=== PATIENT | female | born 1990 | race Caucasian/White ===

== ENCOUNTER 2016-06-04 02:34 | Inpatient (IN) | payer OTHER ==
[2016-06-04] MEDS ORDERED: NACL ONE (03:22)
[2016-06-04 03:32] LABS: Bacteria,Urine 2+ /HPF (Negative); Bilirubin,Urine NEG (Negative); Blood,Urine LG (Negative); Ketones,Urine TR mg/dL (Negative); Leukocyte Esterase,Urine NEG (Negative); Mucus,Urine 3+ /HPF; Nitrite,Urine NEG (Negative); Urobilinogen,Urine < 2.0 mg/dL (<2.0)
[2016-06-04 03:43] LABS: RBC,Urine > 182.0 /HPF (0.0-6.0)
[2016-06-04 03:54] LABS: Basophils % (Auto) 0.2 % (0.0-1.8); Eosinophils % (Auto) 0.3 % (0.0-4.3); Hematocrit 44.3 % (30.3-42.9); Hemoglobin 14.1 gm/dl (10.1-14.3); Mean Corpuscular HGB Conc 32 % (30-34); Mean Corpuscular Hemoglobin 30 pg (28-32); Mean Corpuscular Volume 93 fl (79-97); Platelet Count 236 K/mm3 (140-440); Red Blood Count 4.76 M/mm3 (3.65-5.03); Red Cell Distribution Width 13.5 % (13.2-15.2); White Blood Count 19.7 K/mm3 (4.5-11.0)
[2016-06-04] MEDS ORDERED: NACL 0.9% 1000 ML 0 ML ONE (04:09)
[2016-06-04 04:15] LABS: Alanine Aminotransferase 20 units/L (7-56); Albumin 4.4 g/dL (3.9-5); Albumin/Globulin Ratio 1.2 %; Alkaline Phosphatase 70 units/L (35-129); Bilirubin,Total 0.3 mg/dL (0.1-1.2); Blood Urea Nitrogen 12 mg/dL (7-17); Calcium 9.3 mg/dL (8.4-10.2); Carbon Dioxide 25 mmol/L (22-30); Chloride 94.3 mmol/L (98-107); Glucose 124 mg/dL (65-100); Lipase 21 units/L (13-60); Potassium 4.9 mmol/L (3.6-5.0); Sodium 134 mmol/L (137-145); Total Protein 8.2 g/dL (6.3-8.2)
[2016-06-04 04:18] LABS: Anion Gap 20 mmol/L
--- NOTE | 2016-06-04 05:56 | Cat Scan Report ---
FINAL REPORT PROCEDURE: CT ABDOMEN PELVIS WO CON TECHNIQUE: Computerized axial tomography of the abdomen and pelvis was performed without intravenous contrast. This study is performed without intravascular contrast material and its sensitivity for abdominal and pelvic pathology, including neoplasms, inflammation, abscess, free fluid, thrombosis, arterial dissection and infarction, is reduced compared with a contrast enhanced study. HISTORY: Pelvic, Flank, Back pn, Blood in urine rlq pain COMPARISON: No prior studies are available for comparison. FINDINGS: Visualized lower thorax: No significant abnormality. Liver: Normal size and attenuation. Spleen: Normal size and attenuation. Gallbladder and biliary system: Normal. Pancreas: Normal. Adrenals: Normal. Kidneys: There is a 5 millimeter stone at the right ureteral vesicle junction causing moderate right hydronephrosis and hydroureter. There are tiny stones in the right kidney. The left kidney is unremarkable.. GI tract: There is no bowel obstruction, colitis or enteritis. The appendix is normal.. Lymph nodes and mesentery: Normal. Vasculature: Normal. Bladder: Normal. Reproductive organs: Uterus and ovaries are unremarkable . Peritoneum: There is no ascites, free air, abscess or adenopathy.. Musculoskeletal structures: No significant abnormality. Other: None. IMPRESSION: There is a 5 millimeter stone at the right ureteral vesicle junction causing moderate right hydronephrosis and hydroureter. There are tiny stones in the right kidney. The left kidney is unremarkable.. There is no bowel obstruction, colitis or enteritis. The appendix is normal.. Uterus and ovaries are unremarkable . There is no ascites, free air, abscess or adenopathy.. .
[2016-06-04] MEDS ORDERED: TORADOL IV ONE (09:05)
[2016-06-04] MEDS ORDERED: ROCEPHIN/NS 1 GM/50 ML 50 ML IV ONE (09:05)
[2016-06-04] MEDS ORDERED: ZOFRAN IV ONE (09:05)
[2016-06-04] MEDS ORDERED: SUBLIMAZE IV ONE ×2 (09:05→11:51)
--- NOTE | 2016-06-04 10:29 | Emergency Department Report ---
HPI - General Chief Complaint: Abdominal Pain - HPI HPI: Room 6 The patient is a 25-year-old female presenting with a chief complaint of right flank pain. The patient states 3 days ago she developed pain in the right flank. The patient states she was using pain medication suppository called "Euparin." The patient states the pain increased severely last night prompted her to come to the emergency department. Patient states she noticed hematuria in the emergency department as well as dysuria. The patient gives her pain a score of 10/10. The patient had an episode of vomiting once in the emergency department. There is no history of fever at home. Patient states her pain was a 10/10 upon arrival to the ED and after pain medication in the ED if has decrease to 2/10 currently. Location: Right flank Duration: [see above] Quality: Pain Severity: [see above] Modifying factors: [see above] Context: [see above] Mode of transportation: [not driving] ED Past Medical Hx - Past Medical History Previous Medical History?: Yes Hx Kidney Stones: Yes - Surgical History Past Surgical History?: No - Family History Family history: no significant - Social History Smoking Status: Never Smoker Substance Use Type: None ED Review of Systems ROS: Stated complaint: LOWER BACK PAIN Other details as noted in HPI Comment: All other systems reviewed and negative Constitutional: denies: chills, fever Eyes: denies: eye pain, eye discharge, vision change ENT: denies: ear pain, throat pain Respiratory: denies: cough, shortness of breath, wheezing Cardiovascular: denies: chest pain, palpitations Endocrine: no symptoms reported Gastrointestinal: abdominal pain, nausea, vomiting Genitourinary: dysuria, hematuria Musculoskeletal: back pain Skin: denies: rash, lesions Neurological: denies: headache, weakness, paresthesias Psychiatric: denies: anxiety, depression Hematological/Lymphatic: denies: easy bleeding, easy bruising Physical Exam - Physical Exam Vital Signs: Vital Signs 06/04/16 06/04/16 06/04/16 03:02 09:23 09:27 Temperature 97.8 F Pulse Rate 82 85 Respiratory 20 20 16 Rate Blood Pressure 129/87 Blood Pressure 131/86 [Left] O2 Sat by Pulse 96 97 97 Oximetry Physical Exam: GENERAL: The patient is well-developed well-nourished female lying on stretcher not appearing to be in acute distress. [] HEENT: Normocephalic. Atraumatic. Extraocular motions are intact. Patient has moist mucous membranes. NECK: Supple. Trachea midline CHEST/LUNGS: Clear to auscultation. There is no respiratory distress noted. HEART/CARDIOVASCULAR: Regular. There is no tachycardia. There is no gallop rub or murmur. ABDOMEN: Abdomen is soft, with mild discomfort to palpation in the suprapubic and left lower quadrant. Patient has normal bowel sounds. There is no abdominal distention. SKIN: There is no rash. There is no edema. There is no diaphoresis. NEURO: The patient is awake, alert, and oriented. The patient is cooperative. The patient has normal speech MUSCULOSKELETAL: There is no CVA tenderness bilaterally. There is no evidence of acute injury. ED Course Vital Signs 06/04/16 06/04/16 06/04/16 03:02 09:23 09:27 Temperature 97.8 F Pulse Rate 82 85 Respiratory 20 20 16 Rate Blood Pressure 129/87 Blood Pressure 131/86 [Left] O2 Sat by Pulse 96 97 97 Oximetry - Consultations Consultation #1: 06/04/16 10:21 Urology paged 11:[address] Quesada-recommends patient be admitted to the hospital for observation. States the patient should be NPO now in preparation for potential ureteral stent placement 06/04/16 11:52 ED Medical Decision Making - Lab Data Result diagrams: 06/04/16 03:37 06/04/16 03:37 Laboratory Tests 06/04/16 06/04/16 06/04/16 02:50 03:37 03:37 WBC 19.7 H RBC 4.76 Hgb 14.1 Hct 44.3 H MCV 93 MCH 30 MCHC 32 RDW 13.5 Plt Count 236 Lymph % (Auto) 10.5 L Aurora % (Auto) 5.7 Eos % (Auto) 0.3 Baso % (Auto) 0.2 Lymph # 2.1 Aurora # 1.1 H Eos # 0.1 Baso # 0.0 Seg Neutrophils % 83.3 H Seg Neutrophils # 16.4 H Sodium 134 L Potassium 4.9 Chloride 94.3 L Carbon Dioxide 25 Anion Gap 20 BUN 12 Creatinine 0.5 L Estimated GFR > 60 BUN/Creatinine Ratio 24.00 Glucose 124 H Calcium 9.3 Total Bilirubin 0.3 AST 28 ALT 20 Alkaline Phosphatase 70 Total Protein 8.2 Albumin 4.4 Albumin/Globulin Ratio 1.2 Lipase 21 HCG, Qual Urine Color Yeimy Urine Turbidity Cloudy Urine pH 6.0 Ur Specific Revere 1.030 Urine Protein 100 mg/dl Urine Glucose (UA) Neg Urine Ketones Tr Urine Blood Lg Urine Nitrite Neg Urine Bilirubin Neg Urine Urobilinogen < 2.0 Ur Leukocyte Esterase Neg Urine WBC (Auto) 55.0 H Urine RBC (Auto) > 182.0 Urine Bacteria (Auto) 2+ Urine Mucus 3+ 06/04/16 03:37 WBC RBC Hgb Hct MCV MCH MCHC RDW Plt Count Lymph % (Auto) Aurora % (Auto) Eos % (Auto) Baso % (Auto) Lymph # Aurora # Eos # Baso # Seg Neutrophils % Seg Neutrophils # Sodium Potassium Chloride Carbon Dioxide Anion Gap BUN Creatinine Estimated GFR BUN/Creatinine Ratio Glucose Calcium Total Bilirubin AST ALT Alkaline Phosphatase Total Protein Albumin Albumin/Globulin Ratio Lipase HCG, Qual Negative Urine Color Urine Turbidity Urine pH Ur Specific Revere Urine Protein Urine Glucose (UA) Urine Ketones Urine Blood Urine Nitrite Urine Bilirubin Urine Urobilinogen Ur Leukocyte Esterase Urine WBC (Auto) Urine RBC (Auto) Urine Bacteria (Auto) Urine Mucus - Radiology Data Radiology results: report reviewed (CT abdomen and pelvis), image reviewed (CT abdomen and pelvis) CT abdomen and pelvis (read by radiologist)-there is a 5 mm stone at the right VJ causing moderate right hydronephrosis and hydroureter. There are tiny stones in the right kidney. The left kidney is unremarkable. The appendix is normal - Differential Diagnosis renal colic, pyelonephritis, UTI Critical care attestation.: If time is entered above; I have spent that time in minutes in the direct care of this critically ill patient, excluding procedure time. ED Disposition Clinical Impression: Renal colic on right side, UTI (urinary tract infection) Disposition: OP ADMITTED IP TO THIS HOSP Is pt being admited?: Yes Does the pt Need Aspirin: No Condition: Fair Instructions: Abdominal Pain (ED) Referrals: PRIMARY CARE, [Primary Care Provider] - 3-5 Days Time of Disposition: 11:53 (hospitalist paged)
[2016-06-04] MEDS ORDERED: NACL 0.9% 1000 ML 1,000 ML IV ONE (11:51)
--- NOTE | 2016-06-04 12:53 | Admit Criteria Form ---
Admission Criteria Documentation: ABDOMINAL PAIN Clinical Indications for Admission to Inpatient Care (Place 'X' for any and all applicable criteria): Admission is indicated for ANY ONE of the following(1)(2)(3)(4)(5): [X ]I. Inpatient admission required rather than observation care (Also use Abdominal Pain: Observation Care, as appropriate) because of ANY ONE of the following: [ ]a) Severe pain requiring acute inpatient management [ ]b) Identification of etiology/finding that requires inpatient care (eg, aortic dissection, free air) [ ]c) Absent bowel sounds with complete ileus(6) [ ]d) Suspected toxic megacolon [ ]e) Severe electrolyte abnormalities requiring inpatient care [ ]f) High fever or infection requiring inpatient admission as indicated by ANY ONE of following(7)(8): [ ] i) Appropriate outpatient or observational care antimicrobial treatment unavailable, not effective, or not feasible [ ] ii) Documented bacteremia [ ] iii) Temperature > 104.9 degrees F (oral) [ ] iv) T >103.1 F (oral) or < 96.8 F(rectal) that does not respond to all emergency treatment measures [ ]g) Signs of intestinal obstruction [B] [ ]h) Hemodynamic instability [ ]i) IV fluid to replace significant ongoing losses (greater than 3 L/m2 per day) (12)(13) [ ]j) Percutaneous or open drainage (eg, abscess, biliary tract ) procedures [ ]k) Parenteral nutrition regimen that must be implemented on inpatient basis [X ]l) Other condition,treatment or monitoring requiring inpatient admission. [ ]II. Peritoneal signs present [ ]III. Surgery needed that cannot be performed on an ambulatory basis. [ ]IV. Evaluation requires patient to not eat or drink for extended period ( eg, more than 24 hours). [ ]V. Contraindications and/or Inappropriate clinical situations for Observational Care in patients with abdominal pain, when ANY ONE of the following is required: [ ]a) Thorough evaluation is required to prevent catastrophic events due to delays in diagnosing (e.g.Mesenteric ischemia) 1,3 [ ]b) Patient with severe pathology or with chronic symptoms unlikely to improve in the ED stay (3) [ ]. General contraindications and/or Inappropriate clinical situations for Observational Care in patients with abdominal pain, when ANY ONE of the following is required: [ ]a) Prediction of prolongation of LOS based on ANY ONE of the following may be considered as a contraindication for observational care 2, 3, 4, 5, 6, 7, 8, 9, 10, 11 [ ]i) Age > 65 yrs. [ ]ii) Patient arriving by ambulance [ ]iii) Patient with high acuity [ ]iv) Patient requiring vital sign monitoring [ ]v) Patient on IV medication [ ]b) Systolic blood pressures 180mmHg 3,12 [ ]c) Patient with altered mental status including delirium and other alteration of consciousness, (3) [ ]d) Patient whose discharge disposition will be to a care home home or rehabilitation home should not be managed in Emergency Department Observation Unit. CMS rule requires 3 days hospital stay before such placement.3,13 [ ]e) Patient with failure to thrive due to broad array of etiologies 3,16,17 [ ]f) Inability to ambulate 3,14 Extended stay beyond goal length of stay may be needed for(2)(3): [ ]a) Persistent abdominal pain with suspected intra-abdominal process [ ]b) Diagnosed condition requiring continued stay (e.g., pancreatitis, complicated diverticulitis) [ ]c) Surgery (e.g., colectomy) The original [facility] [employer] content created by [employer] has been revised. The portions of the content which have been revised are identified through the use of italic text or in bold, and [facility] has neither reviewed nor approved the modified material.All other unmodified content is copyright [facility] [employer]. Please see references footnoted in the original [facility] [employer] edition 2016 Admission Criteria Met: Yes
[2016-06-04] MEDS ORDERED: LEVAQUIN 500MG/100ML 100 ML IV ONE (13:27)
[2016-06-04] MEDS ORDERED: TORADOL IV PRN (13:30)
[2016-06-04] MEDS ORDERED: TYLENOL PO PRN (13:30)
[2016-06-04] MEDS ORDERED: REGLAN IV PRN (13:30)
[2016-06-04] MEDS ORDERED: ZOFRAN IV PRN (13:30)
--- NOTE | 2016-06-04 14:05 | History and Physical Report ---
History of Present Illness Date of examination: 06/04/16 Date of admission: 06/04/16 12:35 Chief complaint: RT flank pain for 2 days History of present illness: Miss Dave Frances is a 25-year-old female who presented to the emergency room with right flank pain associated with nausea and vomiting. Pain started in the right flank and radiates to the groin. She's had a stone in the past which she has passed; at the time of evaluation she had no pain. She had received IV Toradol in the emergency room. She had a CT scan done which confirmed a 5 mm light. The urologist Dr. Quesada was consulted from the ER and patient was also started on IV antibiotics for presumed urinary tract infection. Past History Past Medical History: other (renal calculi ) Past Surgical History: No surgical history Social history: no significant social history Family history: diabetes, hypertension Medications and Allergies Allergies Allergy/AdvReac Type Severity Reaction Status Date / Time erythromycin base Allergy Hives Verified 06/04/16 12:39 Active Meds: Active Medications Acetaminophen (Tylenol) 650 mg PO Q4H PRN PRN Reason: Pain MILD(1-3)/Fever >100.5/BAR[place] Sodium Chloride (Nacl 0.9% 1000 Ml) 1,000 mls @ 125 mls/hr IV ONCE ONE Stop: 06/04/16 19:50 Last Admin: 06/04/16 12:45 Dose: 125 mls/hr Levofloxacin/Dextrose (Levaquin 500mg/100ml) 100 mls @ 100 mls/hr IV ONCE ONE Stop: 06/04/16 14:26 Last Admin: 06/04/16 13:43 Dose: 100 mls/hr Ceftriaxone Sodium (Rocephin/Ns 1 Gm/50 Ml) 50 mls @ 100 mls/hr IV Q24HR CARLOS PRN Reason: Protocol Sodium Chloride (Nacl 0.45% 1000 Ml) 1,000 mls @ 125 mls/hr IV DIRECT CARLOS Ketorolac Tromethamine (Toradol) 30 mg IV Q6H PRN PRN Reason: Pain, Moderate (4-6) Stop: 06/09/16 13:29 Metoclopramide HCl (Reglan) 10 mg IV Q6H PRN PRN Reason: Nausea And Vomiting Ondansetron HCl (Zofran) 4 mg IV Q8H PRN PRN Reason: N/V unrelieved by Reglan Review of Systems All systems: negative Constitutional: no weight loss, no weight gain, no fever, no chills, no anorexia , no fatigue Ears, nose, mouth and throat: no ear pain, no ear discharge, no tinnitis, no decreased hearing Breasts: normal Cardiovascular: no chest pain, no orthopnea, no palpitations, no rapid/ irregular heart beat Respiratory: no cough, no cough with sputum, no excessive sputum, no hemoptysis Gastrointestinal: other (as in the [facility] ) Genitourinary Female: no dysuria, no urinary frequency, no urgency Rectal: no pain, no incontinence, no bleeding Musculoskeletal: no neck stiffness, no neck pain, no shooting arm pain, no arm numbness/tingling Integumentary: no rash, no pruritis, no redness, no sores Neurological: no head injury, no transient paralysis, no paralysis, no weakness Psychiatric: no anxiety, no memory loss, no change in sleep habits Endocrine: no cold intolerance, no heat intolerance, no polyphagia, no excessive thirst Hematologic/Lymphatic: no easy bruising, no easy bleeding Allergic/Immunologic: no urticaria, no allergic rhinitis, no wheezing Exam - Constitutional Vitals: Temp Pulse Resp BP Pulse Ox 97.8 F 85 16 131/86 97 06/04/16 03:02 06/04/16 09:23 06/04/16 09:27 06/04/16 09:23 06/04/16 09:27 General appearance: Present: no acute distress, well-nourished - EENT Eyes: Present: PERRL, EOM intact. Absent: scleral icterus, conjunctival injection ENT: hearing intact, clear oral mucosa, no oropharyngeal erythema, no poor dentition - Neck Neck: Present: supple, normal ROM. Absent: enlarged thyroid, masses or JVD - Respiratory Respiratory effort: normal Respiratory: negative: diminished, rales, rhonchi, wheezing - Cardiovascular Rhythm: regular Heart Sounds: Present: S1 & S2. Absent: gallop - Extremities Extremities: no ischemia, pulses intact, pulses symmetrical, No edema, normal temperature Peripheral Pulses: within normal limits - Abdominal General gastrointestinal: Present: soft, non-tender, non-distended, normal bowel sounds Female genitourinary: Present: deferred - Rectal Rectal Exam: deferred - Integumentary Integumentary: Present: clear - Musculoskeletal Musculoskeletal: strength equal bilaterally - Psychiatric Psychiatric: appropriate mood/affect, intact judgment & insight, cooperative - Neurologic Neurologic: CNII-XII intact, moves all extremities Results - Labs CBC & Chem 7: 06/04/16 03:37 06/04/16 03:37 - Imaging and Cardiology CT scan - abdomen: report reviewed (CT scan of the abdomen and pelvis- 5mm stone at the RT ureteral vesicle junction causing moderate hydronephrosis and hydroureter; tiny tones in the RT kidneyl LT kidney unremarkable) Assessment and Plan 1. RT nephrolithiasis with hydroureteral and hydronephrosis with hematuria- admit as an inpatient as more than 2 benign; required for treatment. We'll follow-up with consult from Dr. Felder for further management. We'll keep patient nothing by mouth for now in the event that she needs to have a urological procedure. Start IV fluids. IV Toradol as needed for pain; IV morphine for pain 2. Possible UTI - IV rocephin; in view of WBC in urine and leukocytosis but the WBC in the urine could be related to the hematuria 3. DVT prophylaxis- SCD; hold chemical prophhylaxis- in view of possible urological intervention
--- NOTE | 2016-06-04 14:41 | Anesthesia Consultation ---
Anesthesia Consult and Med Hx Date of service: 06/04/16 - Airway Anesthetic Teeth Evaluation: Good ROM Head & Neck: Adequate Mental/Hyoid Distance: Adequate Mallampati Class: Class I Intubation Access Assessment: Good - Pulmonary Exam CTA: Yes - Cardiac Exam Cardiac Exam: RRR - Pre-Operative Health Status ASA Pre-Surgery Classification: ASA1 Proposed Anesthetic Plan: General - Additional Comments Anesthesia Medical History Comments: No previous anesthesia & negative family history. Occasional migraines, otherwise healthy.
--- NOTE | 2016-06-04 14:41 | Anesthesia Day of Surgery ---
Anesthesia Day of Surgery - Day of Surgery Patient Examined: Yes Patient H&P Reviewed: Yes Patient is NPO: Yes
[2016-06-04] MEDS ORDERED: DIPRIVAN 10 MG/ML IV ONE (15:52)
[2016-06-04] MEDS ORDERED: SUBLIMAZE ONE (15:52)
[2016-06-04] MEDS ORDERED: XYLOCAINE MPF 2% ONE (15:53)
[2016-06-04] MEDS ORDERED: DILAUDID IV PRN (16:44)
--- NOTE | 2016-06-04 16:44 | Post Operative Note ---
Pre-op diagnosis: r ureteral stone inc wbc Post-op diagnosis: same Findings: r distal stone Procedure: cysto stent rpg Anesthesia: GETA Surgeon: UBALDO CASON Estimated blood loss: none Pathology: none Condition: stable Disposition: PACU
[2016-06-04] MEDS ORDERED: ZOFRAN ONE ×2 (16:45→17:13)
[2016-06-04] MEDS ORDERED: TORADOL ONE ×2 (16:45→17:13)
--- NOTE | 2016-06-04 17:01 | Discharge Summary ---
Short Stay Discharge Plan Follow up with: PRIMARY CARE, [Primary Care Provider] - 3-5 Days
[2016-06-04] MEDS ORDERED: VERSED ONE (17:05)
[2016-06-04] MEDS ORDERED: OMNIPAQUE (300 MG) IV ONE (17:08)
--- NOTE | 2016-06-04 17:08 | Post Anesthesia Evaluation ---
- Post Anesthesia Evaluation Patient Participated: Yes Airway Patent: Yes Stable Respiratory Function: Yes Nausea/Vomiting: No Temp > 96.8F: Yes Pain Manageable: Yes Adequeate Hydration: Yes Anesthesia Complications: No Block Receding Appropriately: Not Applicable Patient on Ventilator: No
[2016-06-04] MEDS ORDERED: WATER FOR IRRIG STERILE IR ONE (17:09)
[2016-06-04] MEDS ORDERED: LACTATED RINGERS 1,000 ML ONE (17:44)
[2016-06-04] MEDS ORDERED: AMBIEN PO PRN (20:20)
[2016-06-04] MEDS ORDERED: PERCOCET 5/325 PO PRN (20:20)
--- NOTE | 2016-06-04 21:32 | Operative Report ---
PREOPERATIVE DIAGNOSES: Impending urosepsis, right large distal ureteral stone . POSTOPERATIVE DIAGNOSES: Impending urosepsis, right large distal ureteral stone, with evidence of purulent urine from the right kidney. PROCEDURE: Cystoscopy, minimal right retrograde with right double-J stent. SURGEON: Ruben Quesada MD ANESTHESIA: General. FINDINGS: This is a woman who had a white count of 20,000 with an impacted right stone. She now presents for cystoscopy. DESCRIPTION OF PROCEDURE: The patient was brought to the operating room and placed on the operating table. Following induction of anesthesia, placed in lithotomy position, prepped and draped in usual sterile fashion. Cystourethroscopy showed a full right orifice. A wire passed by the stone and a lot of purulent material were obtained. We placed the balloon next to the ureter, but once all the pus came we did not even balloon dilate it. The balloon was used as an open-ended catheter. We did not use it to dilate. At this point, the 7-Anguillan double J coiled in the kidney and bladder. The patient tolerated the procedure well. No significant complication. We spoke to the family. We will have to go back in a week or two when she is no longer infected to get the stone. She was brought to recovery in stable condition. JOB# [id number] EMELI/MARYBETH
[2016-06-05 05:58] LABS: Basophils % (Auto) 0.4 % (0.0-1.8); Hematocrit 34.9 % (30.3-42.9); Hemoglobin 11.7 gm/dl (10.1-14.3); Mean Corpuscular HGB Conc 34 % (30-34); Mean Corpuscular Hemoglobin 30 pg (28-32); Mean Corpuscular Volume 89 fl (79-97); Platelet Count 190 K/mm3 (140-440); Red Cell Distribution Width 13.3 % (13.2-15.2); White Blood Count 10.2 K/mm3 (4.5-11.0)
[2016-06-05 06:08] LABS: Anion Gap 18 mmol/L; Blood Urea Nitrogen 9 mg/dL (7-17); Carbon Dioxide 22 mmol/L (22-30); Chloride 106.6 mmol/L (98-107); Glucose 84 mg/dL (65-100); Potassium 4.2 mmol/L (3.6-5.0); Sodium 142 mmol/L (137-145)
[2016-06-05] MEDS: NACL 0.45% 1000 ML 1,000 ML IV SCH ×2 (07:00→18:08)
--- NOTE | 2016-06-05 08:35 | Consultation ---
HISTORY OF PRESENT ILLNESS: The patient is a 25-year-old woman who presents with 4 days of severe pain, some nausea, and vomiting. Her white count was almost 20,000. She has no fever. She looks well. She has had a previous stone that passed. She has a 5 mm obstructing right UVJ stone with a white count of 19.9. All risks and implications were discussed. She was offered to go home, observation, antibiotics, admission, stenting, possible extraction, all the implications discussed. PAST MEDICAL HISTORY: Previous stone. PAST SURGICAL HISTORY: No surgeries. LENS MOLDER HISTORY: 0, para 0. SOCIAL HISTORY: Negative. REVIEW OF SYSTEMS: Right flank pain. PHYSICAL EXAMINATION: GENERAL: She is awake, alert, in no distress. HEENT: Normocephalic, nontraumatic. NECK: Supple. CHEST: Clear. CARDIOVASCULAR: Regular rate and rhythm. ABDOMEN: Soft, nondistended. Mild right CVA tenderness. IMPRESSION: White count of almost 20,000. She does not look toxic, recommending stenting if the stone is right there and can come out fine. If not, we will just leave the stent and go back. The other option is to just observe, but she has been having lots of pain for at least 4 days, so she was given Levaquin and Rocephin and we will place a stent later today. JOB# [id number] EMELI/MARYBETH
--- NOTE | 2016-06-05 08:35 | Fluoroscopy Report ---
FLUOROSCOPY RETROGRADE UROGRAPHY: HISTORY: Right ureteral stone, right kidney stone, hematuria. FINDINGS: Fluoroscopy was provided by radiology during retrograde urography by Dr. Quesada. 5 fluoroscopic images were captured. The supervisor machining film demonstrates an approximate 5 mm calculus in the right side of the pelvis presumably within the distal right ureter. Following the administration of retrograde contrast, the stone is confirmed to be in the distal right ureter approximately 3 cm from the UVJ. Subsequent images show placement of a right ureteral stent. There is good drainage of the right renal collecting system on the final image. The left pyelogram was not performed or images were not captured. IMPRESSION: Right ureteral stone. Right ureteral stent placement.
[2016-06-05] MEDS: ROCEPHIN/NS 1 GM/50 ML 50 ML IV SCH (10:30)
--- NOTE | 2016-06-05 11:00 | Query-Infection ---
"Dear Date:06/05/16 Insurance Instructor/CDS:Miky Mariano Phone#: Exercise your independent professional judgment when responding to this query. Questions asked do not imply a particular answer is desired or expected. We greatly appreciate your clarification on this issue. Clinical Documentation States: 25 y/o f admitted 06/04/16 with renal colic pain referred to the groin. Patient diagnosed with hydronephrosis and ureteral calculus with obstruction. patient underwent dilation on ureter with stent. In operative report patient diagnosed with urosepsis. Dr. Ramírez mentioned patient with possible UTI as witnessed by leukocytosis in urine. Patient received ceftriaxone and levofloxacin. Patient had leukocytosis in blood with left shift as well on admission. Clinical findings show: (please check applicable parameters) Infection, known /suspected, with some of the following indicators; Specify the infection:urosepsis, UTI 3 General parameters [ ] Fever (core temp >38.30C or 100.40F) [ ] Hypothermia (core temp <36C) [x] Heart rate >90 bpm [ ] Tachypnea: >20 bpm or pCO2 < 32 mmHg [ ] Altered mental status [ ] Significant edema / +ve fluid balance (>20 ml/kg 24 h) [ ] Hyperglycemia (Bl. glucose >110 mg/dl) w/o diabetes Inflammatory parameters [x] Leukocytosis (white blood cell count >12,000/l) [ ] Leukopenia (white blood cell count <4,000/l) [ ] Bandemia (immature WBC > 10%) [x] Leucocyte Left Shift [ ] Plasma procalcitonin>2 SD above the normal value Hemodynamic and tissue perfusion parameters [ ] Arterial hypotension(SBP <90 mmHg, MAP <70 mmHg,or a SBP drop >40 mmHg in adults) [ ] Hyperlactatemia (>3 mmol/l) [ ] Anion Gap (> 11mEG/l) [ ] Decreased capillary refill or mottling Organ dysfunction parameters [ ] Arterial hypoxemia (PaO2/FIO2 <300) [ ] Creatinine increase =0.5 mg/dl [ ] Acute oliguria (urine output <0.5 ml | kg |h or 45 mM/l for at least 2 hrs) [ ] Coagulation abnormalities (INR >1.5 or activated partial thromboplastin time >60 s) [ ] Ileus (absent joi wel sounds) [ ] Thrombocytopenia (platelet count <100,000/l) [ ] Hyperbilirubinemia (plasma total bilirubin >4 mg/dl) According to the clinical indications above, can Bacteremia be further specified? If so, please indicate below and in your Progress Notes and/ or Discharge Summary. Indicate if the condition was present on admission. PHYSICIAN RESPONSE: [ x] Sepsis [ ] Severe Sepsis [ ] Septic Shock [ ] Septicemia [ ] Sepsis now resolved [ ] SIRS due to non-infectious cause with organ dysfunction [ ] SIRS due to non-infectious cause without organ dysfunction [ ] Other: [ ] Comment/Explanation: Present on Admission: [ x] Yes (Y) [ ] Clinically undeterminable (W) [ ] No (N) [ ] Ruled Out Please also document response in your Progress Notes and/or Discharge Summary and indicate if the condition was present on admission Notes: SIRS/ SIRS WITH ORGAN DYSFUNCTION Systemic inflammatory response syndrome (SIRS) generally refers to the systemic response to trauma/bravo or other insult such as Acute Myocardial Infarction, Acute Pancreatitis, and Major Surgery with symptoms including fever, tachycardia , tachypnea, and leukocytosis (1). BACTEREMIA Presence of viable bacteria in the circulating blood (2). This term is reserved for patients that do not manifest above SIRS response. SEPTICEMIA Generally refers to a systemic disease associated with the presence of pathological microorganisms or toxins in the blood, which can include bacteria, viruses, fungi or other organisms (1). SEPSIS Generally refers to SIRS due infection (1). SEVERE SEPSIS Generally refers to sepsis associated with acute organ dysfunction (1). SEPTIC SHOCK Generally refers to circulatory failure associated with severe sepsis (2), and defined as hypotension or hypoperfusion despite adequate fluid resuscitation (1 hour) (3). REFERENCES: 1. [place] [employer]/Society of Critical Care Medicine Consensus Conference. Definitions for sepsis and organ failure and guidelines for the use of innovative therapies in sepsis. Critical Care Med 1992;20:864 - 74. 2. Anurag yañez MM, Keshawn MP, Steve KELLY, Marvin E, Rachid D, Main D, Lester J, [place] SM , Robbie JL, Jsoue G; International Sepsis Definitions Conference. 2001 SCCM/ESICM/ACCP/ATS/SIS International Sepsis Definitions Conference. Intensive Care Med. 2002 Apr;29(4):530-8. Epub 2002Aug 12. Review. PubMed PMID:[id number] 3. ICD-9-CM Official Guidelines for Coding and Reporting 4. Medscape Drugs, Diseases and Procedures references 5. [employer] Textbook of Internal Medicine. 18th Edition MTDD"
--- NOTE | 2016-06-05 13:00 | Progress Note ---
Assessment and Plan doing well occ mild pain r flank with voiding temp and wbc down ok for discharge with cleared medically needs staged stone extraction pt and mom aware Subjective Date of service: 06/05/16 Principal diagnosis: urosepsis Objective - Constitutional Vitals: Vital Signs - 12hr 06/05/16 06/05/16 01:23 08:00 Temperature 97.7 F 98.5 F Pulse Rate [ 80 66 Radial] Respiratory 20 16 Rate Blood Pressure 128/58 108/60 [Left Arm] O2 Sat by Pulse 100 99 Oximetry General appearance: Present: no acute distress - Neck Neck: supple - Respiratory Respiratory effort: normal Extremities: no ischemia - Gastrointestinal General gastrointestinal: Present: soft, non-tender - Labs CBC & Chem 7: 06/05/16 05:03 06/05/16 05:03 Labs: Abnormal lab results 06/05/16 06/05/16 Range/Units 05:03 05:03 [place] % (Auto) 8.6 H (0.0-7.3) % [place] # 0.9 H (0.0-0.8) K/mm3 Creatinine 0.6 L (0.7-1.2) mg/dL Calcium 8.0 L (8.4-10.2) mg/dL
--- NOTE | 2016-06-05 18:56 | Progress Note ---
Assessment and Plan - Patient Problems (1) Renal colic on right side Current Visit: Yes Status: Acute Plan to address problem: 1. RT nephrolithiasis with hydroureteral and hydronephrosis with hematuria- sraged removal of stone as outpatient (2) UTI (urinary tract infection) Current Visit: Yes Status: Acute Subjective Date of service: 06/05/16 Principal diagnosis: urosepsis Interval history: Doing better RT nephrolithiasis with hydroureteral and hydronephrosis with hematuria-admit as an inpatient as more than 2 benign; required for treatment. We'll follow-up with consult from Dr. Felder for further management. We'll keep patient nothing by mouth for now in the event that she needs to have a urological procedure. Start IV fluids. IV Toradol as needed for pain; IV morphine for pain 2. Possible UTI - IV rocephin; in view of WBC in urine and leukocytosis but the WBC in the urine could be related to the hematuria 3. DVT prophylaxis- SCD; hold chemical prophhylaxis- in view of possible urological intervention Objective - Constitutional Vitals: Vital Signs - 12hr 06/05/16 08:00 Temperature 98.5 F Pulse Rate [ 66 Radial] Respiratory 16 Rate Blood Pressure 108/60 [Left Arm] O2 Sat by Pulse 99 Oximetry General appearance: Present: no acute distress, well-nourished - EENT Eyes: PERRL, EOM intact ENT: hearing intact, clear oral mucosa Ears: bilateral: normal - Neck Neck: supple, normal ROM - Respiratory Respiratory effort: normal Respiratory: bilateral: CTA - Breasts Breasts: normal - Cardiovascular Rhythm: regular Heart Sounds: Present: S1 & S2. Absent: gallop, rub Extremities: pulses intact, No edema, normal color, Full ROM - Gastrointestinal General gastrointestinal: Present: soft, non-tender, non-distended, normal bowel sounds - Genitourinary Female genitourinary: normal - Integumentary Integumentary: clear, warm, dry - Musculoskeletal Musculoskeletal: 1, strength equal bilaterally - Neurologic Neurologic: moves all extremities - Psychiatric Psychiatric: memory intact, appropriate mood/affect, intact judgment & insight - Labs CBC & Chem 7: 06/05/16 05:03 06/05/16 05:03 Labs: Abnormal lab results 06/05/16 06/05/16 Range/Units 05:03 05:03 [place] % (Auto) 8.6 H (0.0-7.3) % [place] # 0.9 H (0.0-0.8) K/mm3 Creatinine 0.6 L (0.7-1.2) mg/dL Calcium 8.0 L (8.4-10.2) mg/dL
[2016-06-06] MEDS: NACL 0.45% 1000 ML 1,000 ML IV SCH (01:10)
[2016-06-06] MEDS: ROCEPHIN/NS 1 GM/50 ML 50 ML IV SCH (11:01)
--- NOTE | 2016-06-06 23:53 | Progress Note ---
Assessment and Plan - Patient Problems (1) Renal colic on right side Current Visit: Yes Status: Acute Plan to address problem: 1. RT nephrolithiasis with hydroureteral and hydronephrosis with hematuria- sraged removal of stone as outpatient (2) UTI (urinary tract infection) Current Visit: Yes Status: Acute Subjective Date of service: 06/06/16 Principal diagnosis: urosepsis Interval history: Doing better RT nephrolithiasis with hydroureteral and hydronephrosis with hematuria-admit as an inpatient as more than 2 benign; required for treatment. We'll follow-up with consult from Dr. Felder for further management. We'll keep patient nothing by mouth for now in the event that she needs to have a urological procedure. Start IV fluids. IV Toradol as needed for pain; IV morphine for pain 2. Possible UTI - IV rocephin; in view of WBC in urine and leukocytosis but the WBC in the urine could be related to the hematuria 3. DVT prophylaxis- SCD; hold chemical prophhylaxis- in view of possible urological intervention Objective - Constitutional Vitals: Vital Signs - 12hr 06/06/16 06/06/16 06/06/16 14:00 14:31 21:36 Temperature 99.0 F 98.5 F Pulse Rate [ 73 74 Radial] Respiratory 18 15 20 Rate Blood Pressure 103/66 107/66 [Left Arm] O2 Sat by Pulse 97 Oximetry General appearance: Present: no acute distress, well-nourished - EENT Eyes: PERRL, EOM intact ENT: hearing intact, clear oral mucosa Ears: bilateral: normal - Neck Neck: supple, normal ROM - Respiratory Respiratory effort: normal Respiratory: bilateral: CTA - Breasts Breasts: normal - Cardiovascular Rhythm: regular Heart Sounds: Present: S1 & S2. Absent: gallop, rub Extremities: pulses intact, No edema, normal color, Full ROM - Gastrointestinal General gastrointestinal: Present: soft, non-tender, non-distended, normal bowel sounds - Genitourinary Female genitourinary: normal - Integumentary Integumentary: clear, warm, dry - Musculoskeletal Musculoskeletal: 1, strength equal bilaterally - Neurologic Neurologic: moves all extremities - Psychiatric Psychiatric: memory intact, appropriate mood/affect, intact judgment & insight - Labs CBC & Chem 7: 06/05/16 05:03 06/05/16 05:03
[2016-06-07] MEDS: ROCEPHIN/NS 1 GM/50 ML 50 ML IV SCH (09:15)
--- NOTE | 2016-06-07 18:04 | Discharge Summary ---
Providers - Providers Date of Admission: 06/04/16 12:35 Date of discharge: 06/07/16 Attending physician: SELENA MERCER Urology Primary care physician: ENTRY PROCESSOR Hospitalization Condition: Good Pertinent studies: CT scan showed 5 mm stone in the UV junction. Procedures: Patient new to me today apparently had stent placed and several days ago and is scheduled to have stone removed as outpatient. Hospital course: Patient brought in stent placed with 5 mm stone mild hydronephrosis. Stone to be removed as outpatient. Per Dr. Quesada. No evidence of infection or sepsis at this time. Disposition: DISCHARGED TO HOME OR SELFCARE - Discharge Diagnoses (1) Renal colic on right side Status: Acute Comment: Cystoscopy would J stent placed. Patient be discharged with follow-up Dr. Quesada to be removed the stone is outpatient. (2) UTI (urinary tract infection) Status: Acute Comment: Treated with Munira biotics. We'll give another 7 days Cipro as outpatient. 500 mg twice a day. Core Measure Documentation - Palliative Care Palliative Care/ Comfort Measures: Not Applicable - Core Measures Any of the following diagnoses?: none Exam - Constitutional Vitals: Temp Pulse Resp BP Pulse Ox 98.3 F 68 18 105/60 98 06/07/16 08:00 06/07/16 08:00 06/07/16 08:00 06/07/16 08:00 06/07/16 08:00 General appearance: Present: no acute distress, well-nourished - EENT Eyes: Present: PERRL ENT: hearing intact, clear oral mucosa - Neck Neck: Present: supple, normal ROM - Respiratory Respiratory effort: normal Respiratory: bilateral: CTA - Cardiovascular Heart Sounds: Present: S1 & S2. Absent: rub, click - Extremities Extremities: pulses symmetrical, No edema Peripheral Pulses: within normal limits - Abdominal General gastrointestinal: Present: soft, non-tender, non-distended, normal bowel sounds - Integumentary Integumentary: Present: clear, warm, dry - Musculoskeletal Musculoskeletal: gait normal, strength equal bilaterally - Psychiatric Psychiatric: appropriate mood/affect, intact judgment & insight - Neurologic Neurologic: CNII-XII intact, moves all extremities Plan Activity: no restrictions Weight Bearing Status: Full Weight Bearing Diet: regular Special Instructions: no heavy lifting Follow up with: PRIMARY CARE, [Primary Care Provider] - 3-5 Days Prescriptions: oxyCODONE /ACETAMINOPHEN [Percocet 5/325 mg] 1 tab PO Q4H PRN #60 tablet PRN Reason: Pain, Moderate (4-6)
[2016-06-07 19:17] VITALS: BP 123/77
== END 2016-06-07 19:30 | disposition home or self-care (01) | DRG 872 ==
LOC: ED 02:34 → 3A 12:35 → 2B-SURG 19:33
PROVIDERS: ADMIT Hospitalist; ATTEND Internal Medicine
PROC: 0T768DZ Dilation of Right Ureter with Intraluminal Device, Via Natural or Artificial Opening Endoscopic (ICD-10-PCS; principal; 2016-06-04)
DX: A41.9 Sepsis, unspecified organism (principal); N13.2 Hydronephrosis with renal and ureteral calculous obstruction; N39.0 Urinary tract infection, site not specified; Z87.442 Personal history of urinary calculi; Z88.1 Allergy status to other antibiotic agents; Z83.3 Family history of diabetes mellitus; Z82.49 Family history of ischemic heart disease and other diseases of the circulatory system
CPT/HCPCS: 36415; 74176; 74420; 80048; 80053; 81001; 83690; 84703; 85025; 96361; 96365; 96375; 96376; A4217; C1726; C1758; C1769; C2617; J0696; J1885; J1956; J2250; J2405; J2704; J3010; J7030; J7120; Q9967

== ENCOUNTER 2016-07-02 11:53 | Day surgery (SDC) | payer OTHER ==
[2016-07-02] MEDS ORDERED: PEPCID PO NR (12:00)
[2016-07-02] MEDS ORDERED: NACL 0.9% 1000 ML 1,000 ML IV SCH (12:00)
[2016-07-02] MEDS ORDERED: VERSED IV NR (12:00)
[2016-07-02] MEDS ORDERED: ANCEF/STERILE WATER 2 GM/20 ML IV NR (13:00)
[2016-07-02] MEDS ORDERED: DIPRIVAN 10 MG/ML IV ONE (13:15)
[2016-07-02] MEDS ORDERED: SUBLIMAZE ONE (13:15)
--- NOTE | 2016-07-02 13:21 | Anesthesia Consultation ---
Anesthesia Consult and Med Hx Date of service: 07/02/16 - Airway Anesthetic Teeth Evaluation: Good ROM Head & Neck: Adequate Mental/Hyoid Distance: Adequate Mallampati Class: Class II Intubation Access Assessment: Probably Good - Pulmonary Exam CTA: Yes - Cardiac Exam Cardiac Exam: RRR - Pre-Operative Health Status ASA Pre-Surgery Classification: ASA2 Proposed Anesthetic Plan: General - Pulmonary Hx Smoking: No Hx Asthma: No COPD: No Hx Pneumonia: No - Cardiovascular System Hx Hypertension: No Hx Coronary Artery Disease: No - Central Nervous System Hx Seizures: No CVA: No - Gastrointestinal Hx Gastroesophageal Reflux Disease: No - Endocrine Hx Renal Disease: No (kidney stones) Hx End Stage Renal Disease: No Hx Insulin Dependent Diabetes: No Hx Non-Insulin Dependent Diabetes: No Hx Thyroid Disease: No Hx Hyperthyroidism: No - Other Systems Hx Cancer: No
--- NOTE | 2016-07-02 13:21 | Anesthesia Day of Surgery ---
Anesthesia Day of Surgery - Day of Surgery Patient Examined: Yes Patient H&P Reviewed: Yes Patient is NPO: Yes
[2016-07-02] MEDS ORDERED: DILAUDID IV PRN (13:22)
[2016-07-02] MEDS ORDERED: ZOFRAN IV PRN (13:22)
[2016-07-02] MEDS ORDERED: NORCO 5/325 PO PRN (13:22)
[2016-07-02] MEDS ORDERED: REGLAN PO NR (13:22)
[2016-07-02] MEDS ORDERED: NACL BACTERIOSTATIC INFILTRATI ONE (13:39)
--- NOTE | 2016-07-02 13:46 | Post Operative Note ---
Pre-op diagnosis: R ureteral stone prev sepsis Post-op diagnosis: same Findings: as above Procedure: cysto r ureteroscopy j stent echange stone ext laser Anesthesia: AMYA Surgeon: UBALDO CASON Estimated blood loss: minimal Pathology: list (stone) Specimen disposition: given to patient/family Condition: stable Disposition: PACU
--- NOTE | 2016-07-02 13:47 | Discharge Summary ---
Short Stay Discharge Plan Activity: other (no straining ) Weight Bearing Status: Full Weight Bearing Diet: regular Special Instructions: other (inc fluids ) Durable Medical Equipment Needed Upon Discharge: Eliase, francis (pt has stent ) Follow up with: PRIMARY CARE, [Primary Care Provider] - 7 Days UBALDO CASON MD [Staff Physician] - 7 Days
[2016-07-02] MEDS ORDERED: XYLOCAINE MPF 2% ONE (15:15)
[2016-07-02] MEDS ORDERED: ZOFRAN ONE (15:27)
[2016-07-02] MEDS ORDERED: DECADRON ONE (15:28)
[2016-07-02] MEDS ORDERED: LASIX ONE (16:03)
[2016-07-02] MEDS ORDERED: OMNIPAQUE 300 MG/50 ML (CATH LAB) IV ONE (16:39)
[2016-07-02] MEDS ORDERED: WATER FOR IRRIG STERILE IR ONE (16:39)
[2016-07-02 20:26] VITALS: BP 122/76
--- NOTE | 2016-07-02 21:09 | Operative Report ---
PREOPERATIVE DIAGNOSIS: Large right distal ureteral stone with previous sepsis. POSTOPERATIVE DIAGNOSIS: Large right distal ureteral stone with previous sepsis. PROCEDURE: Cystoscopy, right retrograde, right laser of the stone with extraction of the stone and double-J stent reinsertion. SURGEON: Ruben Quesada MD ANESTHESIA: General. FINDINGS: This is a woman who presented with fevers and chills and found to have an infected obstructing stone on the right. A stent was placed and she was managed conservatively. She now presents for stone extraction. DESCRIPTION OF PROCEDURE: The patient was brought to the operating room and placed on the operating table. Following induction of anesthesia, placed in lithotomy position, prepped and draped in usual sterile fashion. Cystourethroscopy was carried out and showed the stent, which was grasped with a grasper and a wire coiled in the kidney. Rigid ureteroscopy in the lower ureter showed the stone. Initially, it was too big to grasp and using 200 fiber, we broke it into about 6 or 7 pieces, which were extracted. The patient tolerated the procedure well. A double J coiled in the kidney and bladder. We left the string. Family notified. PLAN: Follow up, stent removal in approximately 1 week. JOB# [id number] EMELI/MARYBETH
--- NOTE | 2016-07-03 08:56 | Fluoroscopy Report ---
Retrograde urography 3 fluoroscopic images. History: Right ureteral calculus. Findings: Right ureteral stent in place. No definite calculus identified in either kidney and the region of the bladder and along the course of the ureter. Impression: Stable right ureteral stent. No calculus identified.
== END 2016-07-02 18:30 | disposition home or self-care (01) ==
LOC: OR 11:53
PROVIDERS: ATTEND Urology
DX: N20.1 Calculus of ureter (principal)
CPT/HCPCS: 52356; 74420; 81025; A4217; C1758; C1769; C2617; J0690; J1100; J1940; J2250; J2405; J2704; J3010; J7030; Q9967